=== PATIENT | female | born 1990 ===

== ENCOUNTER 2020-01-04 07:37 | Inpatient (IN) | payer OTHER ==
[~2020-01-04] VITALS: Ht 160 cm; Wt 72.1 kg
[2020-01-04] MEDS ORDERED: PRENATAL CAPLE1 EAC1 PO (08:28)
== END 2020-01-06 16:52 | disposition home or self-care (01) | DRG 807 ==
LOC: OB/GYN 07:37 → LDR 07:37 → OB/GYN 21:36
PROVIDERS: ADMIT Obstetrics & Gynecology; ATTEND Obstetrics & Gynecology
PROC: 10E0XZZ Delivery of Products of Conception, External Approach (ICD-10-PCS; principal; 2020-01-04)
PROC: 10907ZC Drainage of Amniotic Fluid, Therapeutic from Products of Conception, Via Natural or Artificial Opening (ICD-10-PCS; 2020-01-04)
PROC: 0W8NXZZ Division of Female Perineum, External Approach (ICD-10-PCS; 2020-01-04)
PROC: 3E033VJ Introduction of Other Hormone into Peripheral Vein, Percutaneous Approach (ICD-10-PCS; 2020-01-04)
PROC: 4A1HXCZ Monitoring of Products of Conception, Cardiac Rate, External Approach (ICD-10-PCS; 2020-01-04)
DX: O80 Encounter for full-term uncomplicated delivery (principal); Z37.0 Single live birth; Z3A.38 38 weeks gestation of pregnancy; Z20.828 Contact with and (suspected) exposure to other viral communicable diseases